=== PATIENT | male | born 1995 | race Caucasian/White ===

== ENCOUNTER 2017-01-15 16:35 | Emergency (ER) | payer OTHER ==
[2017-01-15 16:43] VITALS: BP 114/68
--- NOTE | 2017-01-15 17:42 | UC ---
Ear Complaint HPI - HPI Summary HPI Summary: PT HAS HAD SEVERAL WEEKS OF COUGH AND CHEST CONGESTION. PAST DEW DAYS HIS EARS HAVE FELT CLOGGED. HEARING IS MUTED. RIGHT EAR PAINFUL. NO FEVER. - History of Current Complaint Chief Complaint: UCEar Stated Complaint: CLOGGED EARS,COLD Time Seen by Provider: 01/15/17 17:09 Hx Obtained From: Patient Onset/Duration: Gradual Onset, Lasting Days, Still Present Severity Initially: Mild Severity Currently: Mild Pain Intensity: 2 Pain Scale Used: 0-10 Numeric Aggravating Factors: Nothing Alleviating Factors: Nothing Associated Signs/Symptoms: Positive: Hearing Loss, URI Symptoms - Allergies/Home Medications Allergies/Adverse Reactions: Allergies Allergy/AdvReac Type Severity Reaction Status Date / Time Tree Nuts Allergy ITCHY Verified 01/15/17 16:43 THROAT SEASONAL Allergy SNEEZING, Uncoded 11/13/15 09:20 ITCHY WATERY EYES, CONGESTION Home Medications: Home Medications Fluticasone NASAL * [Flonase *] 01/15/17 [History] Loratadine 01/15/17 [History Confirmed 01/15/17] Pseudoephedrine TAB* [Sudafed TAB*] 01/15/17 [History] PMH/Surg Hx/FS Hx/Imm Hx Previously Healthy: Yes - Surgical History Surgical History: Yes Surgery Procedure, Year, and Place: TONSILLECTOMY FOR SLEEP APNEA - Family History Known Family History: Negative: Hypertension - Social History Alcohol Use: Occasionally Substance Use Type: Marijuana Substance Use Comment - Amount & Last Used: HX OF / Smoking Status (MU): Never Smoked Tobacco Review of Systems Constitutional: Negative ENT: Ear Ache Respiratory: Cough Cardiovascular: Negative Gastrointestinal: Negative All Other Systems Reviewed And Are Negative: Yes Physical Exam Triage Information Reviewed: Yes Appearance: Well-Appearing, No Pain Distress, Well-Nourished Vital Signs: Initial Vital Signs Temp 98.6 F 01/15/17 16:40 Pulse 79 01/15/17 16:40 Resp 16 01/15/17 16:40 BP 114/68 01/15/17 16:40 Pulse Ox 100 01/15/17 16:40 Vital Signs Reviewed: Yes Eyes: Positive: Conjunctiva Clear ENT: Positive: Hearing grossly normal, Pharynx normal, Other: - RIGHT TM RETRACTED, SLIGHTLY ERYTHEMATOUS WITH FLUID BEHIND IT. LEFT TM WITH FLUID BEHIND IT. Neck: Positive: Supple, Nontender, No Lymphadenopathy Respiratory Exam: Normal Cardiovascular Exam: Normal Abdomen Description: Positive: Soft Musculoskeletal: Positive: No Edema Neurological: Positive: Alert Psychological: Positive: Age Appropriate Behavior Skin: Negative: rashes Ear Complaint Course/Dx - Differential Dx/Diagnosis Provider Diagnoses: 1. RIGHT AOM. 2. LEFT SEROUS OTITIS MEDIA Discharge - Discharge Plan Condition: Stable Disposition: HOME Prescriptions: Amoxicillin CAP* [Amoxicillin 500 MG CAP*] 1,000 mg PO Q12H #28 cap Patient Education Materials: Otitis Media (ED), Serous Otitis Media (ED) Referrals: Pedro Kirby MD [Primary Care Provider] - If Needed Additional Instructions: YOU MAY BE DEVELOPING A RIGHT SIDED EAR INFECTION. IF SO IT IS VERY EARLY. GIVEN THAT YOUR SYMPTOMS ARE WORSENING AND YOU ARE LEAVING TOWN FOR SEVERAL WEEKS TOMORROW WE WILL COVER YOU WITH ANTIBIOTICS. YOU CERTAINLY HAVE FLUID BEHIND YOUR EAR DRUMS. OKAY TO CONTINUE ALLERGY MEDICINE AND DECONGESTANTS IF HELPFUL. SEEK FOLLOW-UP IF YOU ARE NOT IMPROVING EXPECTED.
== END 2017-01-15 17:44 | disposition home or self-care (01) ==
LOC: UCEAST 16:35
DX: H66.91 Otitis media, unspecified, right ear (principal); H65.92 Unspecified nonsuppurative otitis media, left ear
CPT/HCPCS: 99212; G0463